=== PATIENT | male | born 1980 | race Caucasian/White ===

== ENCOUNTER 2016-05-12 18:52 | Emergency (ER) | payer SELFPAY ==
[~2016-05-12] VITALS: Ht 185.4 cm; Wt 95.8 kg
[2016-05-12 18:55] VITALS: BP 133/95
[2016-05-12] MEDS ORDERED: SODIUM CHLORIDE FLUSH 10ML SYR IVF ONE (19:30)
[2016-05-12] MEDS ORDERED: ONDANSETRON 2MG/ML, 2ML IVPush ONE (19:30)
[2016-05-12 19:42] LABS: HEMOGLOBIN 16.3 g/dL (13.7-18.0)
[2016-05-12] MEDS ORDERED: MORPHINE SULFATE 4 MG/ML, 1ML ONE ×2 (19:44→21:17)
[2016-05-12] MEDS ORDERED: ONDANSETRON 2MG/ML, 2ML ONE (19:44)
[2016-05-12 19:55] LABS: BLOOD UREA NITROGEN 13 mg/dL (7-18)
[2016-05-12] MEDS ORDERED: SODIUM CHLORIDE 0.9% 1,000ML IVBOLUS ONE (20:00)
[2016-05-12 20:01] LABS: ASPARTATE AMINO TRANSFERASE 25 U/L (15-37)
[2016-05-12] MEDS: MORPHINE SULFATE 4 MG/ML, 1ML IVPush PRN ×2 (20:15→21:20)
[2016-05-12] MEDS ORDERED: OMNIPAQUE 350 MG/ML, 100ML BOTTLE ONE (21:46)
== END 2016-05-12 22:37 | disposition home or self-care (01) ==
LOC: ED 22:31
DX: S20.211A Contusion of right front wall of thorax, initial encounter (principal); S30.1XXA Contusion of abdominal wall, initial encounter; W18.30XA Fall on same level, unspecified, initial encounter; Y93.89 Activity, other specified; Y92.89 Other specified places as the place of occurrence of the external cause; Y99.9 Unspecified external cause status
CPT/HCPCS: 36415; 71101; 71260; 74177; 80053; 83690; 85025; 85610; 96361; 96374; 96375; 96376; 99285; J2405; J7030; Q9967